=== PATIENT | female | born 1965 | race Caucasian/White ===

== ENCOUNTER 2016-09-21 09:35 | Emergency (ER) | payer BC ==
[~2016-09-21] VITALS: Ht 165.1 cm; Wt 63.5 kg
[2016-09-21 09:35] VITALS: BP_SYST 0
--- NOTE | 2016-09-21 09:35 | NUR ---
Arrived via [facility] in full arrest CPR in progress. Pt last seen well at 0530 by . Patient found face down on floor by at 0855, CPR initiated. 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 Per patient had a cough for the last week. Placed in room 1. Placed on night monitor, blood pressure machine and pulse oximeter. To gown for exam. Side rails up. All ER staff at bedside including Alan Magallon RN, Abdiel RN, Nimco RN.
[2016-09-21] MEDS ORDERED: SODIUM BICARBONATE 8.4% JECT 50 MEQ/50 ML SYRINGE IVP ONE (10:00)
[2016-09-21] MEDS ORDERED: CALCIUM CHLORIDE 1 GM/10 ML DISP.SYRIN (14 mEq Ca++/SYR) IV ONE (10:00)
[2016-09-21] MEDS ORDERED: EPINEPHrine JECT 1 MG/10 ML SYR IVP ONE (10:00)
[2016-09-21] MEDS ORDERED: ROCURONIUM BROMIDE 10 MG/ML (ZEMURON) IV ONE (10:00)
[2016-09-21] MEDS ORDERED: NS 1000 ML BAG IV ONE (10:00)
--- NOTE | 2016-09-21 10:00 | NUR ---
Time of called by Dr. Murphy.
[2016-09-21] MEDS ORDERED: SODIUM BICARBONATE 8.4% JECT 50 MEQ/50 ML SYRINGE ONE (10:04)
--- NOTE | 2016-09-21 10:13 | NUR ---
Called [facility] spoke with Turner who states that the patient i clear to be released to the mortuary.
[2016-09-21 10:19] LABS: HEMATOCRIT 39.9 % (36-48); MEAN CORPUSCULAR HEMOGLOBIN 31 pg (27-31); MEAN CORPUSCULAR HGB CONC 33 % (32-36); MEAN CORPUSCULAR VOLUME 95 fL (79.0-98.0); PLATELET COUNT (AUTO) 196 K/uL (130-430); RED BLOOD CELL COUNT(AUTO) 4.22 MIL/uL (4.2-6.2); RED CELL DISTRIBUTION WIDTH 13.8 % (9.0-15.0); WHITE BLOOD COUNT (AUTO) 8.3 K/uL (4.8-10.8)
[2016-09-21 10:22] LABS: CALCIUM 10.5 mg/dL (8.4-11.0); CREATININE 0.98 mg/dL (0.55-1.30); POTASSIUM 6.8 mmol/L (3.5-5.1)
[2016-09-21 10:23] LABS: PROTHROMBIN TIME 10.9 SECS (9.5-12.5)
--- NOTE | 2016-09-21 10:26 | NUR ---
[facility]. Spoke with Malini. Case # [id number]. Stated that coordinator will call ER once information is transferred.
[2016-09-21 10:42] LABS: ALBUMIN 3.8 g/dL (3.4-4.8); TOTAL BILIRUBIN 0.4 mg/dL (0.0-1.0); TOTAL PROTEIN, SERUM 7.2 g/dL (6.4-8.3)
[2016-09-21 10:50] LABS: BAND % (MANUAL) 3 % (0-6)
[2016-09-21 10:51] LABS: BASOPHILS % (MANUAL) 0 % (0-2); EOSINOPHILS % (MANUAL) 1 % (0-7); LYMPHOCYTES % (MANUAL) 68 % (20-46); MONOCYTES % (MANUAL) 4 % (0-11)
--- NOTE | 2016-09-21 12:55 | NUR ---
Dominga from [facility] called to ask if patient moved out of hospital, informed that patient remains in hospital ER. All questions addressed. Informed of Valeriy's updated phone number-Dominga stated will call to obtain updated address.
--- NOTE | 2016-09-21 14:00 | NUR ---
Patient placed in body bag by Nimco BURNETTE and Bernabe BRAY. No jewelery or personal belongings noted on patient. All clothing cut off patient during code and placed in belongings bag with all personal belongings. 3 patient ID tags attached to patient ( 2 to body and one to bag).
--- NOTE | 2016-09-21 14:46 | NUR ---
Dominga from [facility] called and asked if ice packs can be placed on patient's eyes, informed her that patient has been removed from ER and placed in body hold area and that we will attempt to get ice to area for patient.
--- NOTE | 2016-09-21 15:10 | NUR ---
Called [facility] to inform that the body hold for patient is a freezer (was unaware before and wanted eye packs to eyes). Waiting for Dominga's call back.
--- NOTE | 2016-09-21 15:30 | NUR ---
Spoke with Patria at [facility]-she asked if patient was ever shocked during code, informed Patria that patient was not shocked, was asystole entire time.
== END 2016-09-21 09:58 | disposition expired ==
LOC: SED 09:35
DX: I46.9 Cardiac arrest, cause unspecified (principal); E11.9 Type 2 diabetes mellitus without complications; I10 Essential (primary) hypertension; E78.00 Pure hypercholesterolemia, unspecified
CPT/HCPCS: 31500; 36415; 80053; 83605; 83880; 84484; 85007; 85027; 85379; 85610; 85730; 87040; 92950; 99291; J0171; J7030